=== PATIENT | female | born 1960 | race Caucasian/White ===

== ENCOUNTER → 2016-05-15 | Outpatient (CLI) | payer BC ==
--- NOTE | 2016-05-15 15:46 | BD ---
EXAMINATION TYPE: MG DEXA axial skeleton. DATE OF EXAM: 05/15/2016 3:14 PM COMPARISON: 03.09.2014 CLINICAL HISTORY: M89.9 DISORDER OF BONE Height: 63 Weight: 209 FRAX RISK QUESTIONS: Alcohol (3 or more units per day): NO Family History (Parent hip fracture): NO Glucocorticoids (More than 3mos): YES, FOR ASTHMA (Ex: prednisone, prednisolone, methylprednisolone, dexamethasone, and hydrocortisone). History of Fracture in Adulthood: NO Secondary Osteoporosis: NO 1. Type 1 Diabetes: NO 2. Hyperthyroidism: NO 3. Menopause before 45: NO 4. Malnutrition: NO 5. Chronic liver disease: NO Rheumatoid Arthritis: NO Current Tobacco Use: NO RISK FACTORS HISTORY OF: Family History of Osteoporosis: NONE Smoke tobacco: NO Drink Alcohol: RARELY Active: YES Diet low in dairy products/other sources of calcium: NO Postmenopausal woman: NOW If Premenopausal, do you have irregular periods: PARTIAL HX 1993 Take estrogen and/or progesterone medications: YES PREMARIN CREAM How long: JAN, 2016 Adrenal Insufficiency: NO MEDICATIONS: Prednisone or other steroids: BREOL DAILY PREDNISONE PRN, How Long: FOR YRS Additional Medications: MULTIVIT DAILY, BP MEDS, ORAL DIABETIC MEDICATION Additional History: RECTOCELE JAN, 2016, CERVICAL CA 1993, ASTHEMA, DIABETIC EXAM MEASUREMENTS: Bone mineral densitometry was performed using the [employer] System. Bone mineral density as measured about the Lumbar spine is: ----- L1-L4(G/cm2): 1.352 T Score Values are as follows: ----- L1: 0.6 ----- L2: 1.8 ----- L3: 2.5 ----- L4: 0.7 ----- L1-L4: 1.4 Bone mineral density has: Increased 5.4% since study of: 03.09.2014 Bone mineral density about the R hip (g/cm2): 0.951 Bone mineral density about the L hip (g/cm2): 0.917 T Score values are as follows: -----R Neck: -0.6 -----L Neck: -1.3 -----R Intertrochanter: -1.0 -----L Intertrochanter: -0.8 Bone mineral density has: Decreased -5.5% since study of: 03.09.2014 FRAX %'S: 5.8% FOR A MAJOR OSTEOPOROTIC FX AND 0.3% FOR A HIP FX: PROBABILITY OF A FX IN 10 YRS TIME IMPRESSION: Osteopenia (T Score between -2.5 and -1 as noted by T score values There is slightly increased risk of fracture and the patient may be considered for treatment. Re-Screen 1-2 years. FOR HER LEFT HIP ONLY NOTE: T-SCORE=SD OF THE YOUNG ADULT MEAN.
--- NOTE | 2016-05-17 08:49 | MM ---
Reason for exam: screening (asymptomatic). Last mammogram was performed 7 months ago. History: Patient has history of endometrial cancer at age 33. Family history of breast cancer in maternal aunt at age 70. Left Mammotome Panel of the left breast, January 26, 2012. Reductions of both breasts, 2008. Took hormonal contraceptives for 3 years beginning at age 18. Physical Findings: A clinical breast exam by your physician is recommended on an annual basis and results should be correlated with mammographic findings. MG 3D Screening Mammo W/Cad Bilateral CC and MLO view(s) were taken. Prior study comparison: October 06, 2015, left breast MG 3d diag mammo w/cad LT. March 31, 2015, bilateral MG screening mammo w CAD. January 15, 2012, CAD bilateral diagnostic mammogram. There are scattered fibroglandular densities. No significant changes when compared with prior studies. ASSESSMENT: Negative, BI-RAD 1 RECOMMENDATION: Routine screening mammogram of both breasts in 1 year.
== END | disposition home or self-care (01) ==
LOC: RADMAMWWP 14:29
PROVIDERS: ATTEND Obstetrics & Gynecology
DX: Z12.31 Encounter for screening mammogram for malignant neoplasm of breast (principal); M85.852 Other specified disorders of bone density and structure, left thigh
CPT/HCPCS: 77080; 77063; G0202

== ENCOUNTER → 2017-07-20 | Outpatient (CLI) | payer BC ==
--- NOTE | 2017-07-23 11:14 | MM ---
Reason for exam: screening (asymptomatic). Last mammogram was performed 1 year and 2 months ago. History: Patient has history of endometrial cancer at age 33. Family history of breast cancer in maternal aunt at age 70. Left Mammotome Panel of the left breast, January 26, 2012. Reductions of both breasts, 2008. Took hormonal contraceptives for 3 years beginning at age 18. Physical Findings: A clinical breast exam by your physician is recommended on an annual basis and results should be correlated with mammographic findings. MG 3D Screening Mammo W/Cad Bilateral CC and MLO view(s) were taken. Prior study comparison: May 15, 2016, bilateral MG 3d screening mammo w/cad. October 06, 2015, left breast MG 3d diag mammo w/cad LT. There are scattered fibroglandular densities. No suspicious abnormality. No significant changes when compared with prior studies. ASSESSMENT: Negative, BI-RAD 1 RECOMMENDATION: Routine screening mammogram of both breasts in 1 year.
== END | disposition home or self-care (01) ==
LOC: RADMAMWWP 15:02
PROVIDERS: ATTEND Obstetrics & Gynecology
DX: Z12.31 Encounter for screening mammogram for malignant neoplasm of breast (principal)
CPT/HCPCS: 77063; 77067

== ENCOUNTER 2017-08-06 07:54 | Day surgery (SDC) | payer BC ==
[2017-08-01 14:44] VITALS: BMI 37.0
[~2017-08-06 07:54] MED LIST: LACTATED RINGERS 1,000 ML IV SCH; LIDOCAINE 1% 20 ML VIAL (10MG/ML) FOR IV START INTRADERMA PRN
[2017-08-06 08:28] VITALS: RESP 16; TEMP 97.8
[2017-08-06 08:36] LABS: Glucose,Whole Blood 165 mg/dL (75-99)
[2017-08-06] MEDS ORDERED: LIDOCAINE 1% INJ 10MG/ML (20 ML MDV) ONE (08:52)
[2017-08-06] MEDS ORDERED: PROPOFOL 10 MG/ML 20 ML VIAL IV ONE (08:52)
--- NOTE | 2017-08-06 09:26 | P.PCN ---
Date of Procedure: 08/06/17 Procedure(s) Performed: Procedure: Total colonoscopy. Preoperative diagnosis: Screening for neoplasia. Postoperative diagnosis: Exam within normal limits. Preparation: HalfLytely prep. Sedation: Was provided by anesthesia. Brief clinical history: The patient is a 57-year-old female who is scheduled for this evaluation for screening for neoplasia. She had an exam at age 45 because of family history of colon cancer in her maternal grandfather. The patient has no abdominal complaints, bleeding or anemia. Procedure: With the patient on her left lateral decubitus position and after informed consent and adequate sedation, the perianal area was inspected and it did not show any fissures or fistulas. There were no masses felt on digital rectal examination. The Olympus CFQ 160L video colonoscope was then inserted in the rectum in the usual fashion and advanced to the cecum. The mucosa appeared healthy. No polyps or tumors were seen or any obvious diverticular disease or other pathology. The patient tolerated the procedure well. Plan: The patient was reassured. She will follow-up with you as planned and I recommended repeat exam in 10 years.
[2017-08-06 09:44] VITALS: BP 134/80; PULSE 86
== END 2017-08-06 10:18 | disposition home or self-care (01) ==
LOC: ORWHC2ENDO 07:54
DX: Z12.11 Encounter for screening for malignant neoplasm of colon (principal); Z80.0 Family history of malignant neoplasm of digestive organs; E13.42 Other specified diabetes mellitus with diabetic polyneuropathy; I10 Essential (primary) hypertension; E78.5 Hyperlipidemia, unspecified; E13.40 Other specified diabetes mellitus with diabetic neuropathy, unspecified; J45.909 Unspecified asthma, uncomplicated; K21.9 Gastro-esophageal reflux disease without esophagitis; Z79.84 Long term (current) use of oral hypoglycemic drugs; Z79.1 Long term (current) use of non-steroidal anti-inflammatories (NSAID); Z79.51 Long term (current) use of inhaled steroids; Z79.899 Other long term (current) drug therapy
CPT/HCPCS: J2001; J2704; G0105

== ENCOUNTER → 2018-07-26 | Outpatient (CLI) | payer BC ==
--- NOTE | 2018-07-29 13:21 | MM ---
Reason for exam: screening (asymptomatic). Last mammogram was performed 1 year ago. History: Patient has history of endometrial cancer at age 33. Family history of breast cancer in maternal aunt at age 70. Left Mammotome Panel of the left breast, January 26, 2012. Reductions of both breasts, 2008. Took hormonal contraceptives for 3 years beginning at age 18. Physical Findings: A clinical breast exam by your physician is recommended on an annual basis and results should be correlated with mammographic findings. MG 3D Screening Mammo W/Cad Bilateral CC and MLO view(s) were taken. Prior study comparison: July 20, 2017, bilateral MG 3d screening mammo w/cad. May 15, 2016, bilateral MG 3d screening mammo w/cad. There are scattered fibroglandular densities. No significant changes when compared with prior studies. ASSESSMENT: Negative, BI-RAD 1 RECOMMENDATION: Routine screening mammogram of both breasts in 1 year.
--- NOTE | 2018-07-29 17:42 | BD ---
EXAMINATION TYPE: Axial Bone Density DATE OF EXAM: 07/26/2018 COMPARISON: NONE CLINICAL HISTORY: 58-year-old female screening for osteoporosis Height: 5 FT 2 1/4 IN Weight: 211 FRAX RISK QUESTIONS: RISK FACTORS HISTORY OF: Active: YES Postmenopausal woman: PART HYST AGE 33 SYMPTOMS SINCE AGE 48 MEDICATIONS: How Long: Additional Medications: JANUVIA, METFORMIN, ROSUVASTATIN, LYRICA, FLUTICASONE, LOSARTIN, MONTELUKAST, CYCLOBENZAPRINE, SYMBACORT, OMEPRAZOLE, ZYRTEC, BIOTIN, VIT D3 Additional History: CORTISONE INJ MAR 2018 EXAM MEASUREMENTS: Bone mineral densitometry was performed using the [employer] System. Bone mineral density as measured about the Lumbar spine is: ----- L1-L4(G/cm2): 1.359 T Score Values are as follows: ----- L2: 1.6 ----- L3: 1.5 ----- L4: 1.3 ----- L1-L4: 1.5 Bone mineral density has: DECREASED -1.4 % since study of: 2017 Bone mineral density about the R hip (g/cm2): 0.933 Bone mineral density about the L hip (g/cm2): 0.836 T Score values are as follows: -----R Neck: -0.8 -----L Neck: -1.5 -----R Total: -0.1 -----L Total: -0.5 Bone mineral density has: INCREASED 3.4 % since study of: 2016 IMPRESSION: Osteopenia (T Score between -2.5 and -1). There is slightly increased risk of fracture and the patient may be considered for treatment. Re-Screen 2-5 years. NOTE: T-SCORE=SD OF THE YOUNG ADULT MEAN.
== END | disposition home or self-care (01) ==
LOC: RADMAMWWP 15:17
PROVIDERS: ATTEND Obstetrics & Gynecology
DX: Z12.31 Encounter for screening mammogram for malignant neoplasm of breast (principal); M85.88 Other specified disorders of bone density and structure, other site; Z80.3 Family history of malignant neoplasm of breast
CPT/HCPCS: 77063; 77067; 77080

== ENCOUNTER → 2019-11-06 | Outpatient (CLI) | payer MEDICARE ==
--- NOTE | 2019-11-07 08:47 | MM ---
Reason for exam: screening (asymptomatic). Last mammogram was performed 1 year and 3 months ago. History: Patient has history of endometrial cancer at age 33. Family history of breast cancer in maternal aunt at age 70. Left Mammotome Panel of the left breast, January 26, 2012. Reductions of both breasts, 2008. Took hormonal contraceptives for 3 years beginning at age 18. Physical Findings: A clinical breast exam by your physician is recommended on an annual basis and results should be correlated with mammographic findings. MG 3D Screening Mammo W/Cad Bilateral CC and MLO view(s) were taken. Prior study comparison: July 26, 2018, bilateral MG 3d screening mammo w/cad. July 20, 2017, bilateral MG 3d screening mammo w/cad. There are scattered fibroglandular densities. Benign appearing calcifications in the left breast. ASSESSMENT: Benign, BI-RAD 2 RECOMMENDATION: Routine screening mammogram of both breasts in 1 year.
== END | disposition home or self-care (01) ==
LOC: RADMAMWWP 09:53
PROVIDERS: ATTEND Obstetrics & Gynecology
DX: Z12.31 Encounter for screening mammogram for malignant neoplasm of breast (principal)
CPT/HCPCS: 77063; 77067

== ENCOUNTER → 2020-02-10 | Outpatient (CLI) | payer MEDICARE ==
--- NOTE | 2020-02-11 15:25 | MR ---
EXAMINATION TYPE: MR liver wo/w con DATE OF EXAM: 02/10/2020 COMPARISON: Outside ultrasound report January 05, 2020 HISTORY: Liver lesion, abnormal outside ultrasound. CONTRAST: Standard multiplanar, multisequence MRI departmental protocol utilizing 8.5ml mL intravenous Gadavist gadolinium contrast. Imaging performed of the abdomen focusing on the liver. FINDINGS: Liver: Hepatomegaly is present. Mild diffuse signal dropout consistent with mild diffuse fatty infilt ration corresponds to ultrasound findings. No concerning solid or cystic mass identified. There is 7 mm thin-walled cyst in the posterior right hepatic dome image 47. No intraluminal gallstones in gallb ladder. No biliary dilatation. Patent hepatic veins draining into IVC. Patent nondilated main portal vein. No surrounding ascites. Other: Lung bases are clear. The spleen, pancreas, and both adrenal glands are within normal limits. No concerning renal mass or hydronephrosis. No bowel dilatation. No intra-abdominal ascites. There is less shaped scoliosis in the thoracolumbar spine with mild to moderate spurring and disc space narro wing. Incidental small hemangioma right L1 vertebra coronal image 26. IMPRESSION: Mild diffuse fatty infiltration of liver confirmed. Incidental 7 mm thin-walled cyst righ t hepatic dome.
== END | disposition home or self-care (01) ==
LOC: RADMRIMAIN 14:57
PROVIDERS: ATTEND Family Medicine
DX: K76.0 Fatty (change of) liver, not elsewhere classified (principal); K76.89 Other specified diseases of liver
CPT/HCPCS: 74183; A9585

== ENCOUNTER → 2020-04-15 | Outpatient (CLI) | payer MEDICARE | END | disposition home or self-care (01) | LOC: LABWHC1 15:35 | PROVIDERS: ATTEND Internal Medicine Critical Care Medicine | DX: Z20.822 Contact with and (suspected) exposure to COVID-19 (principal) | CPT/HCPCS: 36415; 86769 ==

== ENCOUNTER → 2020-11-08 | Outpatient (CLI) | payer MEDICARE ==
--- NOTE | 2020-11-09 10:23 | MM ---
Reason for exam: screening (asymptomatic). Last mammogram was performed 1 year ago. History: Patient has history of endometrial cancer at age 33. Family history of breast cancer in maternal aunt at age 70. Left Mammotome Panel of the left breast, January 26, 2012. Reductions of both breasts, 2008. Took hormonal contraceptives for 3 years beginning at age 18. Physical Findings: A clinical breast exam by your physician is recommended on an annual basis and results should be correlated with mammographic findings. MG 3D Screening Mammo W/Cad Bilateral CC and MLO view(s) were taken. Prior study comparison: November 06, 2019, bilateral MG 3d screening mammo w/cad. July 26, 2018, bilateral MG 3d screening mammo w/cad. There are scattered fibroglandular densities. There is no discrete abnormality. No significant changes when compared with prior studies. ASSESSMENT: Negative, BI-RAD 1 RECOMMENDATION: Routine screening mammogram of both breasts in 1 year.
== END | disposition home or self-care (01) ==
LOC: RADMAMWWP 13:14
PROVIDERS: ATTEND Obstetrics & Gynecology
DX: Z12.31 Encounter for screening mammogram for malignant neoplasm of breast (principal); Z80.3 Family history of malignant neoplasm of breast
CPT/HCPCS: 77063; 77067

== ENCOUNTER → 2022-11-23 | Outpatient (CLI) | payer MEDICARE ==
--- NOTE | 2022-11-25 17:01 | MM ---
Reason for Exam: Screening (asymptomatic). Last mammogram was performed 1 year(s) and 1 month(s) ago. Patient History: Menarche at age 12. First Full-Term at age 25. Hysterectomy at age 33. Endometrial cancer, age 33. Hormonal Contraceptives, starting at age 18 for 3 years. 2008, Bilateral Reduction. 01/26/2012, Core Biopsy on the Left side. Maternal aunt had breast cancer, age 70. Maternal cousin had breast cancer at or over age 50. Risk Values: Vanesa 5 year model risk: 2.0%. NCI Lifetime model risk: 9.0%. Prior Study Comparison: 11/06/2019 Bilateral Screening Mammogram, [facility]. 11/08/2020 Bilateral Screening Mammogram, [facility]. 11/09/2021 Bilateral MG 3D screening mammo w/cad, [facility]. Tissue Density: There are scattered fibroglandular densities. Findings: Analyzed By CAD. There is no suspicious group of microcalcifications or new suspicious mass in either breast. Overall Assessment: Negative, BI-RAD 1 Management: Screening Mammogram of both breasts in 1 year. . Patient should continue monthly self-breast exams. A clinical breast exam by your physician is recommended on an annual basis. This exam should not preclude additional follow-up of suspicious palpable abnormalities. Note on Vanesa scores and lifetime risk: 1. A Vanesa score greater than 3% is considered moderate risk. If this is the case, consider specialist referral to assess eligibility for a risk reducing agent. 2. If overall lifetime risk for the development of breast cancer is 20% or higher, the patient may qualify for future screening with alternating mammogram and breast MRI. Electronically signed and approved by: Romero Rosenberg M.D. Radiologist
== END | disposition home or self-care (01) ==
LOC: RADMAMWWP 15:09
PROVIDERS: ATTEND Obstetrics & Gynecology
DX: Z12.31 Encounter for screening mammogram for malignant neoplasm of breast (principal); Z80.3 Family history of malignant neoplasm of breast
CPT/HCPCS: 77063; 77067

== ENCOUNTER → 2023-02-06 | Outpatient (CLI) | payer MEDICARE | END | disposition home or self-care (01) | LOC: LABWHC1 12:33 | PROVIDERS: ATTEND Orthopaedic Surgery | DX: Z01.812 Encounter for preprocedural laboratory examination (principal); M17.12 Unilateral primary osteoarthritis, left knee; Z22.322 Carrier or suspected carrier of Methicillin resistant Staphylococcus aureus | CPT/HCPCS: 87070 ==

== ENCOUNTER 2023-02-27 07:56 | Day surgery (SDC) | payer MEDICARE ==
[2023-02-22 11:26] VITALS: BMI 34.0
--- NOTE | 2023-02-26 09:18 | P.HPOR ---
History of Present Illness Chief Complaint: Left knee pain The patient is a 62-year-old retired female who presents with progressive left knee pain for the past year worsening recently. She has swelling, stiffness along with giving way. She is having night symptoms. She's tried medications in addition to injections without much relief. She notes daily pain that limits her normal function and activities. Review of Systems Negative except as in HPI Past Medical History Past Medical History: Asthma, Cancer, Diabetes Mellitus, GERD/Reflux, Hyperlipidemia, Hypertension, Neurologic Disorder, Osteoarthritis (OA), Skin Disorder Additional Past Medical History / Comment(s): Heart murmur, mild pulmonary stenosis. Hx 5 bulging discs in back, better now. RIGHT FOOT CHARGOT'S. Rosecea. Neuropathy in bilateral lower extremities and fingertips. Hx cervical cancer 1993 with hysterectomy. Ocassional migraines. History of Any Multi-Drug Resistant Organisms: None Reported Past Surgical History: Appendectomy, Breast Surgery, Hysterectomy, Orthopedic Surgery, Tonsillectomy Additional Past Surgical History / Comment(s): Breast reduction, bilateral carpel tunnel, RECTOCELE REPAIR, colonoscopy, back injections, right knee arthroscopy. Past Anesthesia/Blood Transfusion Reactions: No Reported Reaction, Motion Sickness Additional Past Anesthesia/Blood Transfusion Reaction / Comment(s): Daughter has PONV. Past Psychological History: No Psychological Hx Reported Smoking Status: Never smoker Past Alcohol Use History: Occasional Past Drug Use History: None Reported - Past Family History Father Family Medical History: Dementia, Neurologic Disorder Additional Family Medical History / Comment(s): Parkinsons. Mother Additional Family Medical History / Comment(s): Knee replacement, back surgery. Medications and Allergies Home Medications Medication Instructions Recorded Confirmed Type Cyclobenzaprine [Flexeril] 10 mg PO HS 08/09/15 02/22/23 History Losartan/Hydrochlorothiazide 1 tab PO QAM 08/09/15 02/22/23 History [Hyzaar 100-25 Tablet] Montelukast [Singulair] 10 mg PO HS 08/09/15 02/22/23 History Rosuvastatin Calcium [Crestor] 10 mg PO QAM 12/23/15 02/22/23 History Ibuprofen [Motrin] 600 mg PO Q6HR PRN #40 tab 12/28/15 02/22/23 Rx metFORMIN HCL [Glucophage] 500 mg PO BID 02/07/17 02/22/23 History Aspirin/Acetaminophen/Caffeine 1 each PO DIRECTED PRN 02/22/23 02/22/23 History [Excedrin Migraine Caplet] Cetirizine HCl [Zyrtec] 10 mg PO QAM 02/22/23 02/22/23 History Cholecalciferol [Vitamin D3 (25 50 mcg PO QAM 02/22/23 02/22/23 History Mcg = 1000 Iu)] Doxepin [SINEquan] 10 mg PO HS 02/22/23 02/22/23 History Fluticasone/Vilanterol [Breo 1 inhalation PO HS 02/22/23 02/22/23 History Ellipta 100-25 Mcg Inhaler] Omeprazole 20 mg PO HS 02/22/23 02/22/23 History Pregabalin [Lyrica] 75 mg PO QAM 02/22/23 02/22/23 History Pregabalin [Lyrica] 150 mg PO HS 02/22/23 02/22/23 History rOPINIRole HCL [Requip] 0.5 mg PO TID 02/22/23 02/22/23 History sitaGLIPtin [Januvia] 100 mg PO QAM 02/22/23 02/22/23 History Allergies Allergy/AdvReac Type Severity Reaction Status Date / Time No Known Allergies Allergy Verified 02/22/23 09:37 Physical Examination - Knee left Appearance: effusion Effusion grade: grade 2 Varus alignment in stance: 5 degrees Tenderness with palpation: anterior, medial Gait: limping ROM: extension: -15 degrees ROM: flexion: 110 degrees Crepitus with motion: Yes Strength: extension: 5/5 Strength: flexion: 5/5 Meniscal tests: medial meniscal tests: positive, medial joint line pain: positive Results The patient is a well-developed well-nourished female proximally 5 foot 2, 192 pounds of endomorphic habitus. HEENT exam is nonfocal, neck is supple. She has painless passive motion of her left hip. Straight leg raise is negative. She is tender about the medial joint line of the left knee. Collaterals are stable, Vivian was negative, Nicola's is equivocal. Her distal neurovascular appears intact in left lower extending. - Diagnostic results Knee x-ray: image reviewed (3 views of the left knee obtained the office show severe medial and patellofemoral compartment osteoarthrosis with [id number] changes and subchondral sclerosis.) Assessment and Plan Assessment: Left knee severe medial and patellofemoral compartment osteoarthrosis Plan: I talked to the patient length regarding her condition along with treatment options. At this point she is quite symptomatic and limited because of pain related to her osteoarthrosis despite conservative measures. After a thorough discussion she opts to proceed with surgery. We'll plan to proceed with left total knee arthroplasty. We will institute DVT prophylaxis postoperatively.
[~2023-02-27 07:56] MED LIST changes: +ACETAMINOPHEN TAB 500 MG TAB PO PRN; +DEXAMETHASONE SOD PHOSPHATE 4 MG/ML 1 ML VIAL IV ONE; +HYDROmorphone 0.5 MG/0.5 ML SYRINGE IVP PRN; -LACTATED RINGERS 1,000 ML IV SCH; +LIDOCAINE 1% (10MG/ML) FOR IV START INTRADERMA PRN; -LIDOCAINE 1% 20 ML VIAL (10MG/ML) FOR IV START INTRADERMA PRN; +MELOXICAM 7.5 MG TAB PO PRN; +TRANEXAMIC 1,000 MG/100ML-NACL 1,000 MG in SALINE 1 100ML.BAG IVPB PRN
[2023-02-27] MEDS ORDERED: ONDANSETRON 4 MG/2 ML VIAL ONE (08:34)
[2023-02-27] MEDS: LACTATED RINGERS 1,000 ML IV SCH (08:35)
[2023-02-27 08:41] LABS: Glucose,Whole Blood 147 mg/dL (70-110)
[2023-02-27] MEDS ORDERED: ONDANSETRON 4 MG/2 ML VIAL IVP ONE (08:41)
[2023-02-27] MEDS ORDERED: DEXAMETHASONE SOD PHOSPHATE 4 MG/ML 1 ML VIAL IVP ONE (08:41)
[2023-02-27] MEDS ORDERED: MIDAZOLAM 2 MG/2 ML VIAL IVP ONE (08:46)
[2023-02-27] MEDS ORDERED: PROPOFOL 10 MG/ML 20 ML VIAL IV ONE (09:05)
[2023-02-27] MEDS ORDERED: MIDAZOLAM 2 MG/2 ML VIAL ONE (09:05)
[2023-02-27] MEDS ORDERED: TRANEXAMIC 1,000 MG/100ML-NACL PREMIX BAG ONE (09:05)
[2023-02-27] MEDS ORDERED: DEXAMETHASONE SOD PHOSPHATE 4 MG/ML 1 ML VIAL ONE (09:05)
[2023-02-27] MEDS ORDERED: fentaNYL (PF) 50 MCG/ML 2 ML AMP ONE (09:05)
[2023-02-27] MEDS ORDERED: ROPIVACAINE 5 MG/ML 30 ML VIAL ONE (09:05)
[2023-02-27] MEDS ORDERED: PHENYLEPHRINE-0.9% NACL SYG 1,000 MCG/10 ML SYRINGE ONE (09:05)
[2023-02-27] MEDS ORDERED: ceFAZolin 1,000 MG in SODIUM CHLORIDE 0.9% 1,000 ML IRRIGATION ONE (09:38)
[2023-02-27] MEDS ORDERED: LACTATED RINGERS 1,000 ML IV ONE (10:00)
[2023-02-27] MEDS ORDERED: HYDROmorphone 0.5 MG/0.5 ML SYRINGE IVP PRN (10:37)
[2023-02-27] MEDS ORDERED: NALOXONE 0.4 MG/ML 1 ML VIAL IV PRN (10:37)
[2023-02-27] MEDS ORDERED: HYDROmorphone 1 MG/ML 1 ML SYRINGE IVP PRN (10:37)
[2023-02-27] MEDS ORDERED: MAGNESIUM HYDROXIDE 2,400 MG/30 ML CUP PO PRN (10:37)
[2023-02-27] MEDS ORDERED: HYDROcodone/APAP 5-325MG 1 EACH TAB PO PRN (10:37)
--- NOTE | 2023-02-27 10:59 | P.OP ---
Date of Procedure: 02/27/23 Preoperative Diagnosis: Left knee severe tricompartmental osteoarthrosis Postoperative Diagnosis: Same Procedure(s) Performed: Left total knee arthroplastycementedposterior stabilized Implants: Depuy Attune size 6 narrow cemented femoral component, size 5 cemented tibial component, 11 mm articular surface, 35 mm cemented patellar component. This is a posterior stabilized implant. Anesthesia: regional, spinal Surgeon: Vernon Winn Wax Pattern Assembler #1: Toribio Whyte Estimated Blood Loss (ml): 50 Pathology: none sent Condition: stable Disposition: PACU Indications for Procedure: The patient is a 62-year-old female who presents with progressive left knee pain secondary osteoarthrosis despite conservative measures. A discussion of the risks and benefits of operative intervention versus continued conservative measures was made with patient. She opted proceed with surgery. Operative risks to include infection, neurovascular injury, development of blood clots, possible component loosening/failure and need for subsequent procedures was discussed. Informed consent was obtained. Operative Findings: as below Description of Procedure: The patient was brought to the operating room, and after induction of spinal anesthesia the left lower extremity was prepped and draped in a normal fashion. The tourniquet was inflated to 270 mm marker. A longitudinal incision extending 3 finger breaths above the superior pole of patella extending to the medial aspect the tibial tubercle was then made. The skin and subcutaneous tissues were divided sharply. Electrocautery was used for hemostasis. A medial parapatellar arthrotomy was performed. The medial soft tissues to include the superficial and deep portions of the medial collateral ligament were elevated subperiosteally. The patella was everted. A portion of the retropatellar fat pad was excised sharply. The anterior cruciate ligament was sacrificed. Blunt retractors were placed. A starting hole was made in the distal femur 1 cm anterior to the posterior cruciate ligament origin. An intramedullary femoral guide was then inserted planning on 5 valgus distal cut with 9 mm distal resection. The cutting block was pinned in place. The distal cut was then made. The posterior referencing sizing guide was utilized. I felt size narrow was most appropriate. 3 of external rotation was built into the system and verified off the trans-epicondylar axis and the posterior condyles. The cutting block was pinned in place. The anterior, posterior, and chamfer cuts then made. Bone fragments were removed. The intercondylar guide was placed and the notch cut was made with a sagittal saw. The bone block was removed in one fragment. The trial component was then placed. There is good anterior to posterior and medial to lateral fit. The distal peg holes were drilled. The trial component was removed. Attention was then paid towards preparing the proximal tibia. An extra medullary guide was utilized in line with the tibial shaft and second metatarsal distally. I planned on 2 mm resection from the medial compartment. The cutting block was pinned in place. The proximal tibial cut was then made. The bone was removed in one fragment. The remnants of the medial and lateral menisci were excised at the capsular junction with electrocautery. The tibia sized most appropriately at size 5. The trial femoral and tibial components were placed along with a 11 mm articular surface. I was able to obtain full flexion and extension with internal and external rotation. After several flexion and extension cycles, the tibial rotation was marked with electrocautery line with the medial one third of the tibial tubercle. Attention was then paid towards preparing the patella. A patella reamer was utilized taking stem to 14 mm of bone stock. A good flush cut was made. The patella sized most appropriately 35 mm. The peg holes were drilled. The trial components placed. I had good patellofemoral tracking with no hands technique. The trial components were then removed. The tibia was prepared in the appropriate rotation with appropriate drill and keel punch. The posterior osteophytes were removed with a curved osteotome. The flexion and extension gaps were checked and felt to be symmetric at 11 mm. A trial components were then removed. The bony surfaces were prepared with pulsatile lavage and dried. The tibial component was then cemented place was fully seated. Excess cement was removed. The femoral component cemented place and was fully seated. Excess cement was removed. The trial 11 mm articular surface was placed and the knee was put in full extension. The patella component was cemented place. After the cement had sufficiently hardened, the knee was again taken through a range of motion. Again I was able to obtain full flexion and extension with varus and valgus stress. The trial 11 mm articular surface was removed and the final one inserted. This was fully seated. Care was taken to avoid any soft tissue interposition. Pulsatile lavage was again utilized. The medial parapatellar arthrotomy was closed with #2 Ethibond suture. The tourniquet was deflated with approximately 60 minutes total tourniquet time. Final hemostasis was obtained with the cautery. There was minimal bleeding therefore a deep drain was not placed. The subcutaneous tissues were reapproximated with interrupted 2-0 Vicryl sutures. The skin was reapproximated with 3-0 subcuticular strata fix suture. Skin tape and adhesive was applied. A sterile dressing was applied. The patient was awoken from sedation and transferred to recovery room in good condition. Blood loss was estimated at 50 mL. No complications were incurred. Sponge and needle counts were correct at the end of the case. Toribio KEMP assisted during the major components of this case to include exposure, bone resection, implantation, and closure.
[2023-02-27 11:14] LABS: Glucose,Whole Blood 145 mg/dL (70-110)
[2023-02-27] MEDS: ROPIVACAINE 1,100 MG, SODIUM CHLORIDE 0.9% 500 ML 330 ML, EMPTY PAIN BALL 1 EACH MISCELLANE PRN ×4 (11:33→12:32)
--- NOTE | 2023-02-27 11:57 | XR ---
EXAMINATION TYPE: XR knee limited LT DATE OF EXAM: 02/27/2023 COMPARISON: None HISTORY: Postknee replacement TECHNIQUE: 2 view left knee FINDINGS: Tibial and femoral components in place. Postsurgical soft tissue changes are evident. No ac algaaciq fractures are evident. IMPRESSION: 1. No acute fracture post knee replacement
--- NOTE | 2023-02-27 13:48 | P.ANPRN ---
Procedure Note - Anesthesia - Nerve Block Performed Left Adductor Canal Infusion Time Out Performed: Yes Date of Procedure: 02/27/23 Procedure Start Time: 08:46 Procedure Stop Time: 08:56 Location of Patient: PreOp Indication: Acute Post-Operative Pain, Requested by Surgeon Sedation Type: Sedate with meaningful contact maintained Preparation: Sterile Prep Position: Supine Catheter: Indwelling Needle Types: Pajunk Needle Gauge: 21 Ultrasound used to visualize needle placement: Yes Ultrasound used to observe medication spread: Yes Blood Aspirated: No Pain Paresthesia on Injection Noted: No Resistance on Injection: Normal Image Stored and Saved: Yes Events: Uneventful and Well Tolerated (Ropivacaine 0.5% 20 mL plus dexamethasone 4 MG)
--- NOTE | 2023-02-27 13:49 | P.ANPRN ---
Procedure Note - Anesthesia - Nerve Block Performed Left iPack Single Time Out Performed: Yes Date of Procedure: 02/27/23 Procedure Start Time: 08:57 Procedure Stop Time: 09:00 Location of Patient: PreOp Indication: Acute Post-Operative Pain, Requested by Surgeon Sedation Type: Sedate with meaningful contact maintained Preparation: Sterile Prep Position: Supine Needle Types: Pajunk Needle Gauge: 21 Ultrasound used to visualize needle placement: Yes Ultrasound used to observe medication spread: Yes Blood Aspirated: No Pain Paresthesia on Injection Noted: No Resistance on Injection: Normal Image Stored and Saved: Yes Events: Uneventful and Well Tolerated (Ropivacaine 0.5% 25 mL plus dexamethasone 4 mg)
[2023-02-27] MEDS ORDERED: DEXTROSE 50% SYRINGE 50 ML IVP PRN ×2 (17:27)
[2023-02-27] MEDS ORDERED: IPRATROPIUM-ALBUTEROL 3 ML NEB INHALATION PRN (17:31)
--- NOTE | 2023-02-27 18:12 | P.CONS ---
History of Present Illness - Reason for Consult Consult date: 02/27/23 Medical Management Requesting physician: Vernon Winn - History of Present Illness History of Presenting Illness: Patient is a very pleasant 62-year-old female with a past medical history of hypertension, hyperlipidemia, type II xck-pelrdug-jpdknakek diabetes mellitus, asthma/COPD, cervical cancer status post hysterectomy, and chronic pain with neuropathy resulting from osteoarthritis. She is currently admitted under orthopedic surgery team and is status post elective left total knee arthroplasty completed by Dr. Winn secondary to left knee severe tricompartmental ost eoarthrosis. We have been consulted for medical management throughout patient's hospitalization. Patient seen and fully evaluated at bedside. She was visiting with her family. Patient reports controlled postoperative pain at this time. She denies having any postoperative nausea or vomiting and is tolerating oral intake. Patient reports she is urinating without any difficulties in the postoperative period and denies having any other complaints including headache, lightheadedness, dizziness, chest pain, palpitations, shortness of breath, or experiencing any focal numbness/tingling/weakness. Review of systems: Pertinent positives and negatives as discussed in HPI, a complete review of systems was performed and all other systems are negative. Physical exam: Vital signs reviewed and stable. General: Nontoxic, no distress and appears stated age. Derm: Skin warm and dry, normal coloration for ethnicity. Head: Atraumatic, normocephalic and symmetric. Eyes: EOMs intact, no lid lag, and anicteric sclera Mouth: no lip lesions, mucus membranes moist Cardiovascular: regular rate and rhythm with normal S1S2, no murmur, positive posterior tibial pulses bilaterally, and cap refill < 2 seconds. Lungs: Respirations even, regular, and unlabored on room air. Lungs CTA bilaterally, no rhonchi, no rales, no wheezing, and no accessory muscle usage. Abdominal: soft, nontender to palpation, no guarding, no appreciable organomegaly Ext: ROM intact. No gross muscle atrophy, no edema, no contractures Neuro: Speech clear, face symmetrical and CN II-XII grossly intact with no noted focal neuro deficits Psych: Alert and oriented to person, place, time, and situation. Appropriate and pleasant affect. Assessment and Plan of Care: Asthma/COPD -Postoperative SpO2 92%. -Order placed for scheduled DuoNeb's 4 times daily and as needed for wheezing/shortness of breath. -Encourage use of incentive's prematurity 10-15 times hourly while awake to prevent atelectasis -Resume home Symbicort 80/4.5 g inhaler 2 puffs twice daily and Singulair 10 mg nightly Hypertension -Continue losartan-hydrochlorothiazide 100-25 mg daily. Type II vqt-xvwqvuo-djvsummsr diabetes mellitus with hyperglycemia -Hold metformin and Januvia and place patient on glycemic protocol with NovoLog sliding scale. -Order placed for hemoglobin A1c. Severe left knee tricompartmental osteoarthrosis Status post left total knee arthroplasty -Management per primary admitting orthopedic surgery team including DVT prophylaxis, pain management, wound/dressing care, weightbearing, and PT/OT. -Currently DVT prophylaxis with Xarelto. Data reviewed: -Vital signs reviewed. Blood pressure 135/70, heart rate 97, respiratory rate 15, temp 97.9F, SpO2 of 92% on room air. Thank you for allowing us to participate in the care of this pleasant patient. Do not hesitate to contact us with questions. Someone can be reached from the [facility] hospitalist group all hours of the day at [phone] or via [employer]. Patient was seen independently by Nurse Practitioner. This document was prepared using [employer] dictation software. Please allow for errors in general operations agent while rare they do occur. Masood Swanson NP rendered care for this patient independently, reviewed the findings and plan as documented in the note above. I did not physically speak with or examine the patient on this date. Past Medical History Past Medical History: Asthma, Cancer, Diabetes Mellitus, GERD/Reflux, Hyperlipidemia, Hypertension, Neurologic Disorder, Osteoarthritis (OA), Skin Disorder Additional Past Medical History / Comment(s): Heart murmur, mild pulmonary stenosis. Hx 5 bulging discs in back, better now. RIGHT FOOT CHARGOT'S. [place]. Neuropathy in bilateral lower extremities and fingertips. Hx cervical cancer 1993 with hysterectomy. Ocassional migraines. History of Any Multi-Drug Resistant Organisms: None Reported Past Surgical History: Appendectomy, Breast Surgery, Hysterectomy, Orthopedic Surgery, Tonsillectomy Additional Past Surgical History / Comment(s): Breast reduction, bilateral carpel tunnel, RECTOCELE REPAIR, colonoscopy, back injections, right knee arthroscopy. Past Anesthesia/Blood Transfusion Reactions: No Reported Reaction, Motion Sickness Additional Past Anesthesia/Blood Transfusion Reaction / Comm: Daughter has PONV. Past Psychological History: No Psychological Hx Reported Smoking Status: Never smoker Past Alcohol Use History: Occasional Past Drug Use History: None Reported - Past Family History Father Family Medical History: Dementia, Neurologic Disorder Additional Family Medical History / Comment(s): Parkinsons. Mother Additional Family Medical History / Comment(s): Knee replacement, back surgery. Medications and Allergies Home Medications Medication Instructions Recorded Confirmed Type Cyclobenzaprine [Flexeril] 10 mg PO HS 08/09/15 02/27/23 History Losartan/Hydrochlorothiazide 1 tab PO QAM 08/09/15 02/27/23 History [Hyzaar 100-25 Tablet] Montelukast [Singulair] 10 mg PO HS 08/09/15 02/27/23 History Rosuvastatin Calcium [Crestor] 10 mg PO QAM 12/23/15 02/27/23 History Ibuprofen [Motrin] 600 mg PO Q6HR PRN #40 tab 12/28/15 02/27/23 Rx metFORMIN HCL [Glucophage] 500 mg PO BID 02/07/17 02/27/23 History Aspirin/Acetaminophen/Caffeine 1 each PO DIRECTED PRN 02/22/23 02/27/23 History [Excedrin Migraine Caplet] Cetirizine HCl [Zyrtec] 10 mg PO QAM 02/22/23 02/27/23 History Cholecalciferol [Vitamin D3 (25 50 mcg PO QAM 02/22/23 02/27/23 History Mcg = 1000 Iu)] Doxepin [SINEquan] 10 mg PO HS 02/22/23 02/27/23 History Fluticasone/Vilanterol [Breo 1 inhalation PO HS 02/22/23 02/27/23 History Ellipta 100-25 Mcg Inhaler] Omeprazole 20 mg PO HS 02/22/23 02/27/23 History Pregabalin [Lyrica] 75 mg PO QAM 02/22/23 02/27/23 History Pregabalin [Lyrica] 150 mg PO HS 02/22/23 02/27/23 History rOPINIRole HCL [Requip] 0.5 mg PO TID 02/22/23 02/27/23 History sitaGLIPtin [Januvia] 100 mg PO QAM 02/22/23 02/27/23 History Allergies Allergy/AdvReac Type Severity Reaction Status Date / Time No Known Allergies Allergy Verified 02/27/23 08:14 Physical Exam Osteopathic Statement: *. No significant issues noted on an osteopathic structural exam other than those noted in the History and Physical/Consult. Vitals: Vital Signs Temp Pulse Pulse Resp BP BP Pulse Ox 02/27/23 15:50 97.9 F 97 15 135/70 92 L 02/27/23 14:30 94 16 153/73 96 02/27/23 14:00 95 16 143/67 96 02/27/23 13:30 90 16 136/69 99 02/27/23 13:00 86 16 129/62 98 02/27/23 12:30 87 16 131/69 98 02/27/23 12:15 87 16 120/63 97 02/27/23 12:00 84 16 118/61 97 02/27/23 11:43 83 16 118/61 96 02/27/23 11:28 85 16 115/61 92 L 02/27/23 11:13 84 16 102/55 97 02/27/23 10:57 97.8 F 82 16 95/54 94 L 02/27/23 08:59 87 17 136/65 96 02/27/23 08:32 97.0 F L 90 16 164/84 96 Intake and Output 02/27/23 02/27/23 02/27/23 06:59 14:59 22:59 Intake Total 1351 Output Total 50 Balance 1301 Intake: IV 1351 Output: Estimated Blood Loss 50 Other: Weight 85.9 kg Results Labs: Abnormal Lab Results - Last 24 Hours (Table) 02/27/23 02/27/23 Range/Units 08:36 11:13 POC Glucose (mg/dL) 147 H 145 H (70-110) mg/dL
[2023-02-27] MEDS: INSULIN ASPART (NovoLOG) 100 UNIT/ML VIAL SQ SCH ×2 (18:41→21:14)
[2023-02-27] MEDS: HYDROcodone/APAP 7.5-325MG 1 EACH TAB PO PRN (18:42)
[2023-02-27] MEDS ORDERED: PANTOPRAZOLE 40 MG TABLET PO SCH (21:00)
[2023-02-27] MEDS ORDERED: MONTELUKAST 10 MG TAB PO SCH (21:00)
[2023-02-27] MEDS ORDERED: SENNOSIDES-DOCUSATE SODIUM 1 EACH TAB PO SCH (21:00)
[2023-02-27] MEDS ORDERED: DOXEPIN 10 MG CAP PO SCH (21:00)
[2023-02-27] MEDS ORDERED: PREGABALIN 75 MG CAP PO SCH ×2 (21:00)
[2023-02-27] MEDS ORDERED: CYCLOBENZAPRINE 10 MG TAB PO SCH (21:00)
[2023-02-27 21:06] LABS: Glucose,Whole Blood 236 mg/dL (70-110)
[2023-02-27] MEDS: IPRATROPIUM-ALBUTEROL 3 ML NEB INHALATION SCH (21:24)
[2023-02-27] MEDS: SYMBICORT 80-4.5 MCG INHALER INHALATION SCH (21:24)
[2023-02-28] MEDS: LACTATED RINGERS 1,000 ML IV SCH (01:04)
[2023-02-28] MEDS: HYDROcodone/APAP 7.5-325MG 1 EACH TAB PO PRN ×3 (01:10→12:48)
[2023-02-28 06:16] LABS: Glucose,Whole Blood 136 mg/dL (70-110)
[2023-02-28] MEDS: INSULIN ASPART (NovoLOG) 100 UNIT/ML VIAL SQ SCH ×2 (06:16→12:42)
[2023-02-28 08:30] VITALS: BP 121/73; RESP 18; TEMP 97.5
[2023-02-28] MEDS: hydrOXYzine pamoate 25 MG CAP PO PRN ×2 (08:35→14:29)
[2023-02-28 08:40] LABS: Basophils # (A) 0.02 X 10*3/uL (0.00-0.10); Basophils % (A) 0.1 %; Eosinophils # (A) 0 X 10*3/uL (0.04-0.35); Eosinophils % (A) 0 %; HCT 33.3 % (37.2-46.3); HGB 11.6 g/dL (12.0-15.0); Lymphocytes # (A) 1.48 X 10*3/uL (0.90-5.00); Lymphocytes % (A) 10.2 %; MCH 30.1 pg (27.0-32.0); MCHC 34.8 g/dL (32.0-37.0); MCV 86.3 FL (80.0-97.0); Mean Platelet Volume 8.8 FL (9.5-12.2); Monocytes # (A) 0.83 X 10*3/uL (0.20-1.00); Monocytes % (A) 5.7 %; NRBC Per 100 WBC 0 X 10*3/uL (0.00-0.01); Neutrophils # (A) 12.17 X 10*3/uL (1.80-7.70); Neutrophils % (A) 83.5 %; Platelet Count 288 X 10*3/uL (140-440); RBC 3.86 X 10*6/uL (4.10-5.20); RDW 13.2 % (11.5-14.5); WBC 14.57 X 10*3/uL (4.50-10.00)
[2023-02-28] MEDS ORDERED: RIVAROXABAN 10 MG TAB PO SCH (09:00)
[2023-02-28] MEDS ORDERED: ATORVASTATIN 20 MG TAB PO SCH (09:00)
[2023-02-28] MEDS ORDERED: LORATADINE 10 MG TAB PO SCH (09:00)
[2023-02-28] MEDS ORDERED: PREGABALIN 75 MG CAP PO SCH ×2 (09:00)
[2023-02-28] MEDS ORDERED: LOSARTAN-HCTZ 50-12.5 MG 1 EACH TAB PO SCH (09:00)
[2023-02-28] MEDS: SYMBICORT 80-4.5 MCG INHALER INHALATION SCH (09:08)
[2023-02-28] MEDS: IPRATROPIUM-ALBUTEROL 3 ML NEB INHALATION SCH ×2 (09:08→12:24)
[2023-02-28 09:46] VITALS: PULSE 92
[2023-02-28] MEDS ORDERED: CYCLOBENZAPRINE 10 MG TAB PO SCH (10:00)
--- NOTE | 2023-02-28 10:36 | P.PN ---
Subjective Progress Note Date: 02/28/23 Principal diagnosis: Left knee osteoarthritis Patient was seen at bedside this morning sitting up in chair. Patient says she just finished working with physical therapy and walk on the [facility] and up-and-down stairs. Patient says she has been having a lot of spasms throughout her left leg since surgery yesterday. Patient says she does have a history of restless leg syndrome, however, these spasms feel different. Patient says she normally does take Flexeril at bedtime for spasms. Patient says she has urinated several times since surgery yesterday. Patient says she does not have a walker at home. Patient denies chest pain, fever, shortness breath, nausea, vomiting, change in vision, loss of bowel/bladder control. Objective - Vital Signs Vital signs: Vital Signs Temp 97.5 F L 02/28/23 07:14 Pulse 92 02/28/23 09:23 Resp 18 02/28/23 07:14 BP 121/73 02/28/23 07:14 Pulse Ox 94 L 02/28/23 07:14 FiO2 Intake & Output 02/27/23 02/28/23 02/28/23 18:59 06:59 18:59 Intake Total 1351 100 Output Total 50 Balance 1301 100 Weight 85.9 kg Intake: IV 1351 Intake, IV Titration 100 Amount ceFAZolin 2 gm In Sodium 100 Chloride 0.9% 50 ml @ 100 mls/hr IVPB Q8HR [facility] Rx# :[id number] Output: Estimated Blood Loss 50 Other: # Voids 2 4 - Exam Left knee: Incision is clean, dry, and intact. The exofin fusion tape is in good condition. There is minimal soft tissue swelling and ecchymosis surrounding the medial and lateral aspects of the incision. Calf is soft, no tenderness with palpation. Plantar flexion, dorsiflexion, EHL, FHL are intact. Sensory exam to light touch throughout the extremity is intact, dorsal pedis pulses 2+. - Labs CBC & Chem 7: 02/28/23 05:37 Labs: Abnormal Lab Results - Last 24 Hours (Table) 02/27/23 02/27/23 02/28/23 Range/Units 11:13 20:58 05:37 WBC (4.50-10.00) X 10*3/uL RBC (4.10-5.20) X 10*6/uL Hgb (12.0-15.0) g/dL Hct (37.2-46.3) % MPV (9.5-12.2) FL Immature Gran # (0.00-0.04) X 10*3/uL Neutrophils # (1.80-7.70) X 10*3/uL Eosinophils # (0.04-0.35) X 10*3/uL POC Glucose (mg/dL) 145 H 236 H (70-110) mg/dL Hemoglobin A1c 6.4 H (<=6.0) % 02/28/23 02/28/23 Range/Units 05:37 06:14 WBC 14.57 H (4.50-10.00) X 10*3/uL RBC 3.86 L (4.10-5.20) X 10*6/uL Hgb 11.6 L (12.0-15.0) g/dL Hct 33.3 L (37.2-46.3) % MPV 8.8 L (9.5-12.2) FL Immature Gran # 0.07 H (0.00-0.04) X 10*3/uL Neutrophils # 12.17 H (1.80-7.70) X 10*3/uL Eosinophils # 0 L (0.04-0.35) X 10*3/uL POC Glucose (mg/dL) 136 H (70-110) mg/dL Hemoglobin A1c (<=6.0) % Assessment and Plan Assessment: 1. Left knee osteoarthritis - Postop day #1 status post left total knee arthroplasty Plan: 1. Left knee osteoarthritis - left total knee arthroplasty performed yesterday, 02/27/2023. Patient stable at bedside this morning and did well with p hysical therapy. Patient does need a walker for home. PT/OT. Pain medication as needed. Discharge home today with health services. 2. Appreciate medical management 3. Pain management - [place]; Flexeril 4. GI prophylaxis - senna 5. DVT prophylaxis - [facility]. Going home with Eliquis 2.5 mg twice a day 2 weeks 6. PT/OT - weightbearing as tolerated with walker 7. Encourage incentive spirometer use 8. Discharge planning - discharge home today with health services Time with Patient: Less than 30
--- NOTE | 2023-02-28 10:36 | P.DS ---
Providers Date of admission: 02/27/2023 Expected date of discharge: 02/28/23 Attending physician: Vernon Winn Consults: 02/27/23 10:37 Consult Physician Routine Consulting Provider: Sayda Kim Consult Reason/Comments: Medical Management s/p left total knee arthroplasty Do you want consulting provider notified?: Yes [facility] Course: Date of admission: 02/27/2023 Date of discharge: 02/28/2023 Admission diagnosis: Left knee osteoarthritis Discharge diagnosis: Same Attending physician: Dr. Winn Surgical procedures: Left total knee arthroplasty Brief history: Patient is a 66-year-old female with a history of progressive primary left knee osteoarthritis. At this point patient has failed conservative treatment measures and has opted to proceed with a elective left total knee arthroplasty. Hospital course: Details of patient's surgery can be found in operative report. Patient tolerated the procedure well and was subsequently transported to orthopedic floor. Patient's orthopeidc and medical care was provided daily. Patient had daily laboratory tests performed for evaluation of overall blood counts. Patient had daily physical therapy to include strengthening range of motion as well as education with walker ambulation. Patient was treated with Xarelto for their postoperative DVT prophylaxis during their inpatient stay. Patient was noted to have a relatively uneventful postoperative course. Patient reported satisfactory pain control with oral pain medications by postoperative day 1. Patient showed satisfactory progress with physical therapy. Patient moved steadily through the program and had no difficulty meeting the goals by postoperative day 1. Given patient's otherwise satisfactory course and having met physical therapy goals, plan is to discharge patient home with health services on postoperative day 1. Discharge condition/disposition: Patient will be discharged home with health services in stable condition. Discharge medications: Instructions are given on resumption of patient's normal daily medications per primary care recommendation, in addition patient will be prescribed [place]; Flexeril; senna; Eliquis 2.5 mg twice a day 2 weeks. Discharge instructions: 1. Wound care and infection precautions, keep incision dry and covered while showering, no lotions, creams, moisturizers. No soaking, tubs, pools, hottubs. Do not scrub over the incision. 2. Weight-bear as tolerated with walker / cane until follow-up. 3. Ice and elevate when necessary. Do not exceed 20 minutes per hour with ice pack. 4. Utilize compression sleeve until seen at first follow up appointment. 5. Visiting nursing care. 6. Home physical therapy including home CPM. 7. Pain meds and anticoagulants per prescription. 8. Pain medication has potential to cause constipation. Increase oral fluid and fiber intake. Contact primary care provider if you have not had a bowel movement within 48 hours after discharge 9. No anti-inflammatory medication until discussed at first post operative visit, this including Motrin, Aleve, Mobic, Diclofenac. 10. Follow up in office at 2 weeks postop with Ubaldo Crespo PA-C / Toribio Whyte PA-C 11. Follow up with your primary care doctor 7-10 days after discharge. 12. Contact [facility] with any questions, . Assessment: Left knee osteoarthritis Procedures: Left total knee arthroplasty Patient Condition at Discharge: Good Plan - Discharge Summary Discharge Rx Participant: Yes New Discharge Prescriptions: No Action Cyclobenzaprine [Flexeril] 10 mg PO HS Montelukast [Singulair] 10 mg PO HS Losartan/Hydrochlorothiazide [Hyzaar 100-25 Tablet] 1 tab PO QAM Rosuvastatin Calcium [Crestor] 10 mg PO QAM Ibuprofen [Motrin] 600 mg PO Q6HR PRN #40 tab PRN Reason: Pain metFORMIN HCL [Glucophage] 500 mg PO BID Doxepin [SINEquan] 10 mg PO HS Cholecalciferol [Vitamin D3 (25 Mcg = 1000 Iu)] 50 mcg PO QAM Cetirizine HCl [Zyrtec] 10 mg PO QAM rOPINIRole HCL [Requip] 0.5 mg PO TID Omeprazole 20 mg PO HS Fluticasone/Vilanterol [Breo Ellipta 100-25 Mcg Inhaler] 1 inhalation PO HS sitaGLIPtin [Januvia] 100 mg PO QAM Pregabalin [Lyrica] 75 mg PO QAM Pregabalin [Lyrica] 150 mg PO HS Aspirin/Acetaminophen/Caffeine [Excedrin Migraine Caplet] 1 each PO DIRECTED PRN PRN Reason: Migraine Headache Discharge Medication List Cyclobenzaprine [Flexeril] 10 mg PO HS 08/09/15 [History] Losartan/Hydrochlorothiazide [Hyzaar 100-25 Tablet] 1 tab PO QAM 08/09/15 [History] Montelukast [Singulair] 10 mg PO HS 08/09/15 [History] Rosuvastatin Calcium [Crestor] 10 mg PO QAM 12/23/15 [History] Ibuprofen [Motrin] 600 mg PO Q6HR PRN #40 tab 12/28/15 [Rx] metFORMIN HCL [Glucophage] 500 mg PO BID 02/07/17 [History] Aspirin/Acetaminophen/Caffeine [Excedrin Migraine Caplet] 1 each PO DIRECTED PRN 02/22/23 [History] Cetirizine HCl [Zyrtec] 10 mg PO QAM 02/22/23 [History] Cholecalciferol [Vitamin D3 (25 Mcg = 1000 Iu)] 50 mcg PO QAM 02/22/23 [History] Doxepin [SINEquan] 10 mg PO HS 02/22/23 [History] Fluticasone/Vilanterol [Breo Ellipta 100-25 Mcg Inhaler] 1 inhalation PO HS 02/22/23 [History] Omeprazole 20 mg PO HS 02/22/23 [History] Pregabalin [Lyrica] 75 mg PO QAM 02/22/23 [History] Pregabalin [Lyrica] 150 mg PO HS 02/22/23 [History] rOPINIRole HCL [Requip] 0.5 mg PO TID 02/22/23 [History] sitaGLIPtin [Januvia] 100 mg PO QAM 02/22/23 [History] Follow up Appointment(s)/Referral(s): Toribio Whyte, [facility] [PHYSICIAN MAITRE D'] - 2 Weeks Patient Instructions/Handouts: Knee Replacement (DC), Knee Replacement (GEN) Activity/Diet/Wound Care/Special Instructions: Orthopedic Discharge Instructions: 1. Wound care and infection precautions, keep incision dry and covered while showering, no lotions, creams, moisturizers. No soaking, pools, hot tubs. Do not scrub over incision. 2. Weight-bear as tolerated with walker / cane until follow-up. 3. Ice and elevate when necessary. Do not exceed 20 minutes per hour with ice pack. 4. Utilize compression sleeve until seen at first follow up appointment. 5. Pain meds and anticoagulants per prescription. 6. Pain medication has potential to cause constipation. Increase oral fluid and fiber intake. Contact primary care provider if you have not had a bowel movement within 48 hours after discharge. 7. No anti-inflammatory medication until discussed at first post operative visit, this including Motrin, Aleve, Mobic, Diclofenac. 8. Follow up in office at 2 weeks postop with Ubaldo Crespo PA-C / Toribio Whyte PA-C 9. Follow up with your primary care doctor 7-10 days after discharge. 10. Contact [facility] with any questions, . Keep incision clean, dry, intact. While showering, cover fusion tape with Saran wrap. Keep fusion tape on until follow-up appointment in office in 2 weeks Discharge Disposition: HOME WITH HOME HEALTH SERVICES
[2023-02-28 11:10] LABS: Glucose,Whole Blood 299 mg/dL (70-110)
--- NOTE | 2023-02-28 15:47 | P.PN ---
Subjective Progress Note Date: 02/28/23 Patient is a 62-year-old female with hypertension, hyperlipidemia, type II htg-icgwqow-hclxufotf diabetes mellitus, asthma/COPD who presented for an elective left total knee arthroplasty which was preformed without any immediate post-op complications. Patient seen and examined at bedside. She is having a lot of spasms in her left leg. No chest pain, SOB, or nausea. Vital signs reviewed General: nontoxic, no distress, appears at stated age Cardiovascular: S1S2 reg, no murmur, positive posterior tibial pulse bilateral, Lungs: CTA bilateral, no rhonchi, no rales , no accessory muscle use Abdominal: soft, nontender to palpation, no guarding, no appreciable organomegaly Psych: Alert, oriented, appropriate affect Assessment/Plan: Patient is a 62 yo female s/p L TKA Asthma/COPD -Postoperative SpO2 92%. -Order placed for scheduled DuoNeb's 4 times daily and as needed for wheezing/shortness of breath. -Encourage use of incentive's prematurity 10-15 times hourly while awake to prevent atelectasis -Resume home Symbicort 80/4.5 g inhaler 2 puffs twice daily and Singulair 10 mg nightly Hypertension -Losartan-hydrochlorothiazide 100-25 mg daily. Type II uey-affpsrr-lvcrnjgcj diabetes mellitus with hyperglycemia -Resume metformin and Januvia Imaging: None new Data Review: Labs reviewed remarkable for WBC 14.57, HgB 11.6, and A1C 6.4 Patient medically optimized for discharge. Home med rec addressed. This dictation was prepared using [employer] voice recognition software. Though every attempt is made to correct errors during dictation some may still exist. Objective - Vital Signs Vital signs: Vital Signs Temp 97.5 F L 02/28/23 07:14 Pulse 92 02/28/23 09:23 Resp 18 02/28/23 07:14 BP 121/73 02/28/23 07:14 Pulse Ox 94 L 02/28/23 07:14 FiO2 Intake & Output 02/27/23 02/28/23 02/28/23 18:59 06:59 18:59 Intake Total 1351 100 Output Total 50 Balance 1301 100 Weight 85.9 kg Intake: IV 1351 Intake, IV Titration 100 Amount ceFAZolin 2 gm In Sodium 100 Chloride 0.9% 50 ml @ 100 mls/hr IVPB Q8HR [facility] Rx# :[id number] Output: Estimated Blood Loss 50 Other: # Voids 2 4 - Labs CBC & Chem 7: 02/28/23 05:37 Labs: Abnormal Lab Results - Last 24 Hours (Table) 02/27/23 02/28/23 02/28/23 Range/Units 20:58 05:37 05:37 WBC 14.57 H (4.50-10.00) X 10*3/uL RBC 3.86 L (4.10-5.20) X 10*6/uL Hgb 11.6 L (12.0-15.0) g/dL Hct 33.3 L (37.2-46.3) % MPV 8.8 L (9.5-12.2) FL Immature Gran # 0.07 H (0.00-0.04) X 10*3/uL Neutrophils # 12.17 H (1.80-7.70) X 10*3/uL Eosinophils # 0 L (0.04-0.35) X 10*3/uL POC Glucose (mg/dL) 236 H (70-110) mg/dL Hemoglobin A1c 6.4 H (<=6.0) % 02/28/23 02/28/23 Range/Units 06:14 11:09 WBC (4.50-10.00) X 10*3/uL RBC (4.10-5.20) X 10*6/uL Hgb (12.0-15.0) g/dL Hct (37.2-46.3) % MPV (9.5-12.2) FL Immature Gran # (0.00-0.04) X 10*3/uL Neutrophils # (1.80-7.70) X 10*3/uL Eosinophils # (0.04-0.35) X 10*3/uL POC Glucose (mg/dL) 136 H 299 H (70-110) mg/dL Hemoglobin A1c (<=6.0) %
== END 2023-02-28 15:22 | disposition home health service (06) ==
LOC: OR 07:56 → 4SSUR 10:54 → OR 02-28 15:22
PROVIDERS: ATTEND Orthopaedic Surgery
DX: M17.12 Unilateral primary osteoarthritis, left knee (principal); G89.18 Other acute postprocedural pain; I10 Essential (primary) hypertension; E78.5 Hyperlipidemia, unspecified; E11.9 Type 2 diabetes mellitus without complications; J45.909 Unspecified asthma, uncomplicated; F10.90 Alcohol use, unspecified, uncomplicated; G43.909 Migraine, unspecified, not intractable, without status migrainosus; Z90.710 Acquired absence of both cervix and uterus; Z96.651 Presence of right artificial knee joint; Z98.890 Other specified postprocedural states; Z79.51 Long term (current) use of inhaled steroids; Z79.82 Long term (current) use of aspirin; Z79.84 Long term (current) use of oral hypoglycemic drugs; Z79.4 Long term (current) use of insulin; Z79.899 Other long term (current) drug therapy
CPT/HCPCS: 94640 ×2; 97161; 64999; 64448; 85025; 83036; 73560; 27447; C1713 ×2; C1776; C1751; J2250; J1100; J0690 ×2; J2405; J1170 ×2; J2795

== ENCOUNTER → 2023-09-18 | Outpatient (CLI) | payer MEDICARE ==
[2023-09-18 09:40] LABS: Basophils % (A) 1 %; Eosinophils # (A) 0.1 k/uL (0-0.7); Eosinophils % (A) 1 %; HCT 44.4 % (34.0-46.0); HGB 14.5 gm/dL (11.4-16.0); Lymphocytes # (A) 0.9 k/uL (1.0-4.8); Lymphocytes % (A) 13 %; MCH 29.3 pg (25.0-35.0); MCHC 32.6 g/dL (31.0-37.0); Mean Platelet Volume 7.6; Monocytes # (A) 0.4 k/uL (0-1.0); Monocytes % (A) 6 %; Neutrophils # (A) 5.1 k/uL (1.3-7.7); Neutrophils % (A) 77 %; Platelet Count 330 k/uL (150-450); RBC 4.93 m/uL (3.80-5.40); RDW 14.3 % (11.5-15.5); WBC 6.6 k/uL (3.8-10.6)
[2023-09-18 15:46] LABS: ALT 26 U/L (8-44); AST 21 U/L (13-35); Albumin 4.7 g/dL (3.8-4.9); Albumin/Globulin Ratio 1.88 Ratio (1.60-3.17); Alkaline Phosphatase 80 U/L (41-126); BUN/Creat Ratio 26.12 Ratio (12.00-20.00); Blood Urea Nitrogen 20.9 mg/dL (9.0-27.0); Calcium 10.3 mg/dL (8.7-10.3); Carbon Dioxide 22.4 mmol/L (21.6-31.8); Chloride 98 mmol/L (96-109); Chol/HDL Ratio 2.97 Ratio; Globulin 2.5 g/dL (1.6-3.3); Glucose 127 mg/dL (70-110); Potassium 3.6 mmol/L (3.5-5.5); Sodium 138 mmol/L (135-145); Total Bilirubin 0.8 mg/dL (0.3-1.2); Total Protein 7.2 g/dL (6.2-8.2)
[2023-09-18 21:21] LABS: Urine Creatinine 90.4 mg/dL (28.0-217.0)
== END | disposition home or self-care (01) ==
LOC: LABWHC1 08:06
PROVIDERS: ATTEND Family Medicine
DX: Z00.00 Encounter for general adult medical examination without abnormal findings (principal); I10 Essential (primary) hypertension; E11.9 Type 2 diabetes mellitus without complications; E78.5 Hyperlipidemia, unspecified; K21.9 Gastro-esophageal reflux disease without esophagitis; E66.9 Obesity, unspecified; R60.9 Edema, unspecified
CPT/HCPCS: 36415; 80053; 80061; 82043; 82306; 82570; 82607; 82746; 83036; 84443; 85025; 86803

== ENCOUNTER → 2023-11-26 | Outpatient (CLI) | payer MEDICARE ==
--- NOTE | 2023-11-27 11:45 | MM ---
Reason for Exam: Screening (asymptomatic). Last screening mammogram was performed 12 month(s) ago. Patient History: Menarche at age 12. First Full-Term at age 25. Hysterectomy at age 33. Postmenopausal. Endometrial cancer, age 33. Hormonal Contraceptives, starting at age 18 for 3 years. 2008, Bilateral Reduction. 01/26/2012, Core Biopsy on the Left side. Maternal aunt had breast cancer, age 70. Maternal cousin had breast cancer at or over age 50. Risk Values: Vanesa 5 year model risk: 2.1%. NCI Lifetime model risk: 8.7%. Prior Study Comparison: 07/20/2017 Bilateral Screening Mammogram, [facility]. 07/26/2018 Bilateral Screening Mammogram, [facility]. 11/06/2019 Bilateral Screening Mammogram, [facility]. 11/08/2020 Bilateral Screening Mammogram, [facility]. 11/09/2021 Bilateral MG 3D screening mammo w/cad, [facility]. 11/23/2022 Bilateral MG 3D screening mammo w/cad, [facility]. Tissue Density: The breasts are extremely dense, which lowers the sensitivity of mammography. Findings: Analyzed By CAD. There is no suspicious group of microcalcifications or new suspicious mass in either breast. Overall Assessment: Negative, BI-RAD 1 Management: Screening Mammogram of both breasts in 1 year. . Patient should continue monthly self-breast exams. A clinical breast exam by your physician is recommended on an annual basis. This exam should not preclude additional follow-up of suspicious palpable abnormalities. Note on Vanesa scores and lifetime risk: 1. A Vanesa score greater than 3% is considered moderate risk. If this is the case, consider specialist referral to assess eligibility for a risk reducing agent. 2. If overall lifetime risk for the development of breast cancer is 20% or higher, the patient may qualify for future screening with alternating mammogram and breast MRI. Electronically signed and approved by: Parminder Crowder M.D. [facility]
== END | disposition home or self-care (01) ==
LOC: RADMAMWWP 10:35
PROVIDERS: ATTEND Family Medicine
DX: Z12.31 Encounter for screening mammogram for malignant neoplasm of breast
CPT/HCPCS: 77063; 77067

== ENCOUNTER → 2024-08-29 | Outpatient (CLI) | payer MEDICARE ==
[2024-08-29 15:08] LABS: Basophils # (A) 0.05 X 10*3/uL (0.00-0.10); Basophils % (A) 0.6 %; Eosinophils # (A) 0.13 X 10*3/uL (0.04-0.35); Eosinophils % (A) 1.4 %; HCT 38.5 % (37.2-46.3); HGB 12.9 g/dL (12.0-15.0); Lymphocytes # (A) 1.36 X 10*3/uL (0.90-5.00); Lymphocytes % (A) 15.1 %; MCH 30.1 pg (27.0-32.0); MCHC 33.5 g/dL (32.0-37.0); MCV 89.7 FL (80.0-97.0); Monocytes # (A) 0.76 X 10*3/uL (0.20-1.00); Monocytes % (A) 8.4 %; NRBC Per 100 WBC 0 X 10*3/uL (0.00-0.01); Neutrophils # (A) 6.68 X 10*3/uL (1.80-7.70); Neutrophils % (A) 73.9 %; Platelet Count 344 X 10*3/uL (140-440); RBC 4.29 X 10*6/uL (4.10-5.20); RDW 13.3 % (11.5-14.5); WBC 9.03 X 10*3/uL (4.50-10.00)
[2024-08-29 15:20] LABS: Appearance,Urine Clear (Clear); Bilirubin,Urine Negative (Negative); Blood,Urine Negative (Negative); Color,Urine Yellow (Yellow); Ketones,Urine Trace (Negative); Nitrite,Urine Negative (Negative); Urobilinogen,Urine 0.2 E.U./DL
[2024-08-29 15:29] LABS: Bacteria,Urine None Seen (None Seen)
[2024-08-29 16:51] LABS: ALT 21 U/L (8-44); AST 24 U/L (13-35); Albumin 4.4 g/dL (3.8-4.9); Albumin/Globulin Ratio 1.91 Ratio (1.60-3.17); Alkaline Phosphatase 78 U/L (41-126); BUN/Creat Ratio 21.14 Ratio (12.00-20.00); Blood Urea Nitrogen 14.8 mg/dL (9.0-27.0); Calcium 10.3 mg/dL (8.7-10.3); Carbon Dioxide 24.2 mmol/L (21.6-31.8); Chloride 95 mmol/L (96-109); Globulin 2.3 g/dL (1.6-3.3); Glucose 94 mg/dL (70-110); Potassium 3.8 mmol/L (3.5-5.5); Sodium 131 mmol/L (135-145); T4, Free (Free Thyroxine) 1.14 ng/dL (0.80-1.80); Total Bilirubin 0.6 mg/dL (0.3-1.2); Total Protein 6.7 g/dL (6.2-8.2)
== END | disposition home or self-care (01) ==
LOC: LABWHC1 09:56
PROVIDERS: ATTEND Family Medicine
DX: Z00.00 Encounter for general adult medical examination without abnormal findings (principal); I10 Essential (primary) hypertension; E11.9 Type 2 diabetes mellitus without complications; G60.9 Hereditary and idiopathic neuropathy, unspecified
CPT/HCPCS: 36415; 80053; 81001; 82043; 82306; 82570; 82607; 82746; 83036; 84439; 84443; 85025

== ENCOUNTER → 2024-09-12 | Outpatient (CLI) | payer MEDICARE ==
[2024-09-12 20:05] LABS: BUN/Creat Ratio 21.86 Ratio (12.00-20.00); Blood Urea Nitrogen 15.3 mg/dL (9.0-27.0); Calcium 10.3 mg/dL (8.7-10.3); Carbon Dioxide 24.7 mmol/L (21.6-31.8); Chloride 97 mmol/L (96-109); Glucose 113 mg/dL (70-110); Potassium 3.1 mmol/L (3.5-5.5); Sodium 135 mmol/L (135-145)
== END | disposition home or self-care (01) ==
LOC: LABWHC1 13:48
PROVIDERS: ATTEND Family Medicine
DX: E87.6 Hypokalemia (principal)
CPT/HCPCS: 36415; 80048